=== PATIENT | female | born 1970 | race Hispanic/Latino ===

== ENCOUNTER 2021-10-15 11:40 | Emergency (ER) | payer SELFPAY ==
[~2021-10-15] VITALS: Ht 157.5 cm; Wt 90.0 kg
[2021-10-15] MEDS ORDERED: TRIAMCINOLON0.11 EX (15:04)
[2021-10-15 15:25] VITALS: BP 126/71
== END 2021-10-15 15:25 | disposition home or self-care (01) | DRG 153 ==
LOC: ED 11:40
DX: J06.9 Acute upper respiratory infection, unspecified (principal); R21 Rash and other nonspecific skin eruption; E66.9 Obesity, unspecified; F17.210 Nicotine dependence, cigarettes, uncomplicated; Z68.36 Body mass index [BMI] 36.0-36.9, adult; Z20.822 Contact with and (suspected) exposure to COVID-19